=== PATIENT | female | born 1985 | race Asian ===

== ENCOUNTER 2019-03-17 20:56 | Emergency (ER) | payer BC ==
--- NOTE | 2019-03-17 21:02 | NUR ---
Patient left without being seen by ER physician. Pt states she feels fine now, she doesn't see any pain [email or web address] swelling in her hand, she may have just been anxious.
== END 2019-03-17 21:04 | disposition left against medical advice (07) ==
LOC: ER 20:56
DX: Z53.21 Procedure and treatment not carried out due to patient leaving prior to being seen by health care provider (principal)